=== PATIENT | female | born 1980 | race Caucasian/White ===

== ENCOUNTER 2025-01-22 19:43 | Emergency (ER) | payer OTHER, SELFPAY ==
[2025-01-22 20:00] VITALS: BP 147/95; PULSE 97; TEMP 37.3; O2SAT 98; BMI 35.1
[2025-01-22] MEDS: ONDANSETRON 4 MG RAPDIS TABLET SL (20:07)
--- NOTE | 2025-01-22 21:08 | ED.ABDPAIN1 ---
HPI - Abdominal Pain General Chief Complaint: Abdominal Pain Stated Complaint: UPPER ABDOMINAL PAIN Time Seen by Provider: 01/22/25 20:39 Source: patient Mode of arrival: walk-in Limitations: no limitations History of Present Illness HPI narrative: past history of cholecystectomy. Presents complaining of mid epigastric abdominal pain. Pain last week Saturday for one day and then resolved. Now pain waxing and waning past 3 days. Increased pain today associated with vomiting. No dyspnea or chest pain. Related Data Allergies Allergy/AdvReac Type Severity Reaction Status Date / Time levalbuterol (From Xopenex) Allergy Hives Verified 01/22/25 19:59 Review of Systems ROS Status of ROS 10 or more systems reviewed and unremarkable except as noted in history and below PFSH PFSH Social History Little interest or pleasure in doing things: not at all Feeling down, depressed, or hopeless: not at all Exam Constitutional Vital Signs, click to edit/add: Last Vital Signs Temp 99.1 F 01/22/25 20:00 Pulse 97 H 01/22/25 20:00 Resp 18 01/22/25 20:00 BP 147/95 H 01/22/25 20:00 Pulse Ox 98 01/22/25 20:00 O2 Del Method Room Air 01/22/25 20:00 Common normals: no apparent distress, average body habitus, oriented x3, no limitations, healthy appearing, alert and well nourished [facility] Common normals: normocephalic and head/scalp atraumatic Eye Common normals: PERRL and EOMs intact bilaterally Respiratory Common normals: normal respiratory effort, no retractions, no use of accessory muscles and clear to auscultation bilaterally Cardio Common normals: regular rate, regular rhythm, S1 normal heart sound and S2 normal heart sound GI Common normals: Normal to inspection, nondistended, normoactive bowel sounds present and soft to palpation Other: mild epigastric tenderness Extremity Common normals: normal to inspection and full ROM Neuro Common normals: oriented x3, CN's II-XII intact bilaterally, moves all extremities and no focal motor deficits Psych Appearance: grossly normal Course Vital Signs Vital signs: Vital Signs Temperature 99.1 F 01/22/25 20:00 Pulse Rate 97 H 01/22/25 20:00 Respiratory Rate 18 01/22/25 20:00 Blood Pressure 147/95 H 01/22/25 20:00 Pulse Oximetry 98 01/22/25 20:00 Oxygen Delivery Method Room Air 01/22/25 20:00 Temperature 99.1 F 01/22/25 20:00 Pulse Rate 97 H 01/22/25 20:00 Respiratory Rate 18 01/22/25 20:00 Blood Pressure 147/95 H 01/22/25 20:00 Pulse Oximetry 98 01/22/25 20:00 Oxygen Delivery Method Room Air 01/22/25 20:00 MDM - Abdominal Pain MDM Narrative Medical decision making narrative: patient presents complaining of abdominal pain and vomiting. Mild epigastric pain without guarding. No fever. WBC 4.1. past cholecystectomy. Mild elevated T. bili at 1.2 . Mild elevation of LFT with AST 134, ALT 228, Alk phos [address] with cholecystectomy. No biliary dilatation . Pancreas without ductal dilatation. Dilatation of proximal small bowel loops with findings concerning for partial small bowel obstruction. Discussed with Dr Tristan at [facility] who has accepted the patient in transfer. patient re evaluated and only complaint is continued abdominal pain. 50mcg fentanyl ordered Lab Data Labs: Lab Results 01/22/25 01/22/25 Range/Units 21:16 21:21 WBC 4.1 (4.0-11.0) 10^3/uL RBC 4.58 (4.20-5.40) 10^6/uL Hgb 14.6 (12.0-16.0) g/dL Hct 43.0 (36.0-48.0) % MCV 93.9 (81.0-99.0) fL MCH 31.9 (26.7-34.0) pg MCHC 34.0 (29.9-35.2) g/dL RDW 13.2 (11.0-15.0) % Plt Count 136 L (150-450) 10^3/uL MPV 10.1 (9.5-13.5) fL Neut % (Auto) 73.2 (43.0-75.0) % Lymph % (Auto) 18.1 L (20.5-60.0) % Bound[place] % (Auto) 6.6 (1.7-12.0) % Eos % (Auto) 1.2 (0.9-7.0) % Baso % (Auto) 0.7 (0.2-2.0) % Neut # (Auto) 3.0 (1.4-6.5) 10^3/uL Lymph # (Auto) 0.7 L (1.2-3.8) 10^3/uL Boundary # (Auto) 0.3 (0.3-0.8) 10^3/uL Eos # (Auto) 0.1 (0.0-0.7) 10^3/uL Baso # (Auto) 0.0 (0.0-0.1) 10^3/uL Abs Immat Gran (auto) 0.01 (0.00-0.03) 10^3/uL Imm/Tot Granulo (auto) 0.2 (0.0-0.5) % Sodium 140 (136-145) mmol/L Potassium 4.0 (3.5-5.1) mmol/L Chloride 103 (98-107) mmol/L Carbon Dioxide 30.2 (21.0-32.0) mmol/L Anion Gap 10.8 BUN 14.0 (7.0-18.0) mg/dL Creatinine 0.77 (0.55-1.02) mg/dL Est GFR ( Amer) >60 (>=60 mL/min/1.73m^2) Est GFR (Non-Af Amer) >60 (>=60 mL/min/1.73m^2) BUN/Creatinine Ratio 18.2 Glucose 102 (74-106) mg/dL Lactate 0.8 (0.4-2.0) mmol/L Calcium 9.6 (8.5-10.1) mg/dL Total Bilirubin 1.2 H (0.2-1.0) mg/dL AST 134 H (15-37) U/L ALT 228 H (14-59) U/L Alkaline Phosphatase 123 H (46-116) U/L Troponin I High Sens <4.0 L (4.0-51.3) pg/mL Total Protein 8.2 (6.4-8.2) g/dL Albumin 3.8 (3.4-5.0) g/dL Globulin 4.4 g/dL Albumin/Globulin Ratio 0.9 Lipase 40.0 (16.0-77.0) U/L Urine Color Yellow (YELLOW) Urine Clarity Clear (CLEAR) Urine pH 6.0 (5.0-9.0) Ur Specific [place] 1.025 (1.005-1.025) Urine Protein Trace (NEG/TRACE) mg/dL Urine Glucose (UA) Negative (NEGATIVE) mg/dL Urine Ketones Trace A (NEGATIVE) mg/dL Urine Occult Blood Large A (NEGATIVE) Urine Nitrite Negative (NEGATIVE) Urine Bilirubin Negative (NEGATIVE) Urine Urobilinogen 1.0 (0.2-1.0) EU/dL Ur Leukocyte Esterase Negative (NEGATIVE) Urine RBC 2-5 A (0-2) #/HPF Urine WBC 2-5 A (NONE SEEN) #/HPF Ur Squamous Epith Cells Moderate A (NONE/RARE) #/LPF Urine Crystals None seen (None Seen) #/HPF Urine Bacteria Small A (NONE SEEN) #/HPF Urine Casts None seen (NONE SEEN) #/LPF Urine Mucus Large A (NONE SEEN) [place] [place], Qual Negative (NEGATIVE) Discharge Plan Discharge Chief Complaint: Abdominal Pain Clinical Impression: Partial small bowel obstruction Patient Disposition: [facility] Discharge Date/Time: 01/23/25 00:10
[2025-01-22] MEDS: 0.9 % SODIUM CHLORIDE 1,000 ML 999 ML IV (21:33)
[2025-01-22 21:34] LABS: Bilirubin Urine NEGATIVE (NEGATIVE); Blood Urine LARGE (NEGATIVE); Clarity Urine CLEAR (CLEAR); Color Urine YELLOW (YELLOW); Glucose Urine UA NEGATIVE (NEGATIVE); Ketones Urine TRACE mg/dL (NEGATIVE); Leukocyte Esterase Urine NEGATIVE (NEGATIVE); Nitrite Urine NEGATIVE (NEGATIVE); Protein Urine TRACE mg/dL (NEG/TRACE); Specific Gravity Urine 1.025 (1.005-1.025)
[2025-01-22 21:38] LABS: Basophils Percent Auto 0.7 % (0.2-2.0); Eosinophils Absolute Auto 0.1 10^3/uL (0.0-0.7); Eosinophils Percent Auto 1.2 % (0.9-7.0); Hemoglobin 14.6 g/dL (12.0-16.0); Immature Granulocytes Abs Auto 0.01 10^3/uL (0.00-0.03); Immature Granulocytes Pct Auto 0.2 % (0.0-0.5); Lymphocytes Absolute Auto 0.7 10^3/uL (1.2-3.8); Lymphocytes Percent Auto 18.1 % (20.5-60.0); Mean Corpuscular Hemoglobin 31.9 pg (26.7-34.0); Mean Corpuscular Volume 93.9 fL (81.0-99.0); Mean Platelet Volume 10.1 fL (9.5-13.5); Monocytes Absolute Auto 0.3 10^3/uL (0.3-0.8); Monocytes Percent Auto 6.6 % (1.7-12.0); Neutrophils Percent Auto 73.2 % (43.0-75.0); Platelet Count 136 10^3/uL (150-450); Red Blood Count 4.58 10^6/uL (4.20-5.40); Red Cell Distribution Width 13.2 % (11.0-15.0); White Blood Count 4.1 10^3/uL (4.0-11.0)
[2025-01-22 21:39] LABS: HCG Qualitative Urine* NEGATIVE (NEGATIVE); Internal Control Within Normal Limits
[2025-01-22 21:42] LABS: Bacteria Urine SMALL #/HPF (NONE SEEN); Crystals Seen? None Seen #/HPF (None Seen); Mucus Urine LARGE (NONE SEEN); Squamous Epithelial Cell Urine MODERATE #/LPF (NONE/RARE)
[2025-01-22 21:43] LABS: Cast Seen? NONE SEEN #/LPF (NONE SEEN); Urine Culture Indicated YES-FRMC
[2025-01-22 21:52] LABS: Lactate/Lactic Acid 0.8 mmol/L (0.4-2.0)
[2025-01-22 21:54] LABS: Alanine Aminotransferase 228 U/L (14-59); Albumin Globulin Ratio 0.9; Albumin Level 3.8 g/dL (3.4-5.0); Alkaline Phosphatase 123 U/L (46-116); Anion Gap 10.8; Aspartate Amino Transferase 134 U/L (15-37); BUN Creatinine Ratio 18.2; Bilirubin Total 1.2 mg/dL (0.2-1.0); Calcium 9.6 mg/dL (8.5-10.1); Carbon Dioxide 30.2 mmol/L (21.0-32.0); Chloride 103 mmol/L (98-107); Estimated GFR (African America >60 (>=60 mL/min/1.73m^2); Estimated GFR (Non-African Ame >60 (>=60 mL/min/1.73m^2); Globulin 4.4 g/dL; Glucose 102 mg/dL (74-106); Sodium 140 mmol/L (136-145); Total Protein 8.2 g/dL (6.4-8.2); Troponin I High Sensitivity <4.0 pg/mL (4.0-51.3)
[2025-01-22] MEDS: FENTANYL CITRATE/PF 100 MCG/2 ML VIAL 50 MCG IV (23:32)
== END 2025-01-23 00:10 | disposition short-term general hospital (02) ==
PROVIDERS: Emergency Provider Internal Medicine; PCP Family Medicine
DX: K56.600 Partial intestinal obstruction, unspecified as to cause (principal); Z90.49 Acquired absence of other specified parts of digestive tract
CPT/HCPCS: 36415; 74176; 80053; 81001; 83605; 83690; 84484; 84703; 85025; 87086; 87088; 96374; 99285; J3010; Q0162